=== PATIENT | male | born 1960 | race Hispanic/Latino ===

== ENCOUNTER 2018-07-01 17:44 | Observation (INO) | payer OTHER ==
[~2018-07-01] VITALS: Ht 160 cm; Wt 70.8 kg
[2018-07-01] MEDS ORDERED: ASPIRIN 81 MG CHEW TAB PO ONE (18:15)
[2018-07-01 18:26] LABS: BASOPHILS % 0.3 % (0.0-1.0); EOSINOPHILS # (AUTO) 0.2 (0.0-0.4); EOSINOPHILS % 2.1 % (0.0-6.0); HEMATOCRIT 41.6 % (38.2-49.6); HEMOGLOBIN 13.7 g/dL (14.0-18.0); LYMPHOCYTES # (AUTO) 2.1 (1.0-3.2); LYMPHOCYTES % 22.9 % (18.0-39.1); MEAN CORPUSCULAR HEMOGLOBIN 28.8 pg (28-32); MEAN CORPUSCULAR HGB CONC 32.9 g/dL (31-35); MEAN CORPUSCULAR VOLUME 87.6 fL (81-99); MONOCYTES # (AUTO) 0.5 (0.2-0.8); MONOCYTES % 5.6 % (4.4-11.3); NEUTROPHILS # (AUTO) 6.2 (2.1-6.9); NEUTROPHILS % 68.8 % (38.7-80.0); PLATELET COUNT 220 x10e3/uL (140-360); RED BLOOD COUNT 4.75 x10e6/uL (4.3-5.7)
[2018-07-01 18:29] LABS: BILIRUBIN,URINE NEGATIVE (NEGATIVE); CLARITY,URINE CLEAR (CLEAR); COLOR,URINE YELLOW (YELLOW); KETONES,URINE NEGATIVE (NEGATIVE); LEUKOCYTE ESTERASE ,URINE NEGATIVE (NEGATIVE); NITRITE,URINE NEGATIVE (NEGATIVE); PROTEIN,URINE DIPSTICK NEGATIVE (NEGATIVE); URINE UROBILINOGEN 0.2 mg/dL (0.2 - 1)
[2018-07-01 18:39] LABS: INR 1.07; PROTHROMBIN TIME 13.1 seconds (11.9-14.5)
[2018-07-01 18:40] LABS: PARTIAL THROMBOPLASTIN TIME 27.6 seconds (23.8-35.5)
[2018-07-01 18:44] LABS: BACTERIA,URINE FEW /HPF; EPITHELIAL CELLS,URINE MODERATE /LPF; MUCUS,URINE MODERATE (RARE)
[2018-07-01 18:48] LABS: ALANINE AMINOTRANSFERASE 53 IU/L (0-55); ALBUMIN 3.4 g/dL (3.5-5.0); ALBUMIN/GLOBULIN RATIO 0.9 (0.8-2.0); ALKALINE PHOSPHATASE 175 IU/L (40-150); ANION GAP 14.4 mmol/L (8-16); BLOOD UREA NITROGEN 17 mg/dL (7-26); BUN/CREATININE RATIO 18 (6-25); CALCIUM 9.4 mg/dL (8.4-10.2); CARBON DIOXIDE 24 mmol/L (22-29); CHLORIDE 104 mmol/L (98-107); CREATINE KINASE 145 IU/L (30-200); CREATININE, SERUM 0.95 mg/dL (0.72-1.25); EST GLOMERULAR FILTRATION RATE > 60 ML/MIN (60-); GLUCOSE 99 mg/dL (74-118); POTASSIUM 3.4 mmol/L (3.5-5.1); SODIUM 139 mmol/L (136-145)
--- NOTE | 2018-07-01 19:15 | Diagnostic Imaging Report ---
EXAMINATION: CHEST SINGLE (PORTABLE) INDICATION: \S\CHEST PAIN \S\[id number] \S\1835 \S\Y COMPARISON: None FINDINGS: AP view TUBES and LINES: None. LUNGS: Lungs are well inflated. Lungs are clear. There is no evidence of pneumonia or pulmonary edema. PLEURA: No pleural effusion or pneumothorax. HEART AND MEDIASTINUM: The cardiomediastinal silhouette is unremarkable.. BONES AND SOFT TISSUES: No acute osseous lesion. Soft tissues are unremarkable. UPPER ABDOMEN: No free air under the diaphragm. IMPRESSION: No acute thoracic abnormality. Signed by: Dr. Kasey Gomez M.D. on 07/01/2018 7:12 PM
[2018-07-01] MEDS ORDERED: PANTOPRAZOLE 40 MG 10ML VIAL IV STA (20:09)
[2018-07-01 20:26] LABS: MAGNESIUM 1.9 MG/DL (1.3-2.1)
[2018-07-01] MEDS ORDERED: ONDANSETRON HCL INJ 2 MG/ML VIAL IV PRN (20:45)
[2018-07-01] MEDS ORDERED: MORPHINE SULFATE 2 MG/ML SYR IV PRN (20:45)
[2018-07-01] MEDS: FAMOTIDINE 20 MG/2 ML VIAL IV SCH (21:16)
[2018-07-01 23:00] VITALS: BP 139/89
[2018-07-01] MEDS ORDERED: OMEPRAZOLE40 MG PO (23:46)
[2018-07-02 00:04] VITALS: BP 139/89
[2018-07-02 03:28] LABS: CREATINE KINASE MB 1.2 ng/mL (0-5.0)
[2018-07-02 05:05] VITALS: BP 130/87
[2018-07-02 05:16] LABS: BASOPHILS % 0.2 % (0.0-1.0); EOSINOPHILS # (AUTO) 0.2 (0.0-0.4); EOSINOPHILS % 2.4 % (0.0-6.0); HEMATOCRIT 42.1 % (38.2-49.6); HEMOGLOBIN 13.9 g/dL (14.0-18.0); LYMPHOCYTES # (AUTO) 2.2 (1.0-3.2); LYMPHOCYTES % 23.1 % (18.0-39.1); MEAN CORPUSCULAR HEMOGLOBIN 28.9 pg (28-32); MEAN CORPUSCULAR VOLUME 87.5 fL (81-99); MONOCYTES # (AUTO) 0.6 (0.2-0.8); MONOCYTES % 6.3 % (4.4-11.3); NEUTROPHILS # (AUTO) 6.5 (2.1-6.9); NEUTROPHILS % 67.7 % (38.7-80.0); PLATELET COUNT 206 x10e3/uL (140-360); RED BLOOD COUNT 4.81 x10e6/uL (4.3-5.7)
[2018-07-02 05:49] LABS: ALANINE AMINOTRANSFERASE 50 IU/L (0-55); ALBUMIN 3.4 g/dL (3.5-5.0); ALBUMIN/GLOBULIN RATIO 0.9 (0.8-2.0); ALKALINE PHOSPHATASE 170 IU/L (40-150); ANION GAP 13.6 mmol/L (8-16); BLOOD UREA NITROGEN 14 mg/dL (7-26); BUN/CREATININE RATIO 17 (6-25); CALCIUM 9.4 mg/dL (8.4-10.2); CARBON DIOXIDE 26 mmol/L (22-29); CHLORIDE 103 mmol/L (98-107); CHOL/HDL RATIO 5.6 (3.9-4.7); CHOLESTEROL 175 MD/DL (0-199); CREATININE, SERUM 0.83 mg/dL (0.72-1.25); EST GLOMERULAR FILTRATION RATE > 60 ML/MIN (60-); GLUCOSE 93 mg/dL (74-118); HDL CHOLESTEROL 31 MG/DL (40-60); LDL CHOLESTEROL 118 MG/DL (60-130); POTASSIUM 3.6 mmol/L (3.5-5.1); SODIUM 139 mmol/L (136-145); TRIGLYCERIDES 131 MG/DL (0-149)
[2018-07-02 06:09] LABS: CREATINE KINASE MB 1.2 ng/mL (0-5.0)
[2018-07-02 07:26] VITALS: BP 134/87
[2018-07-02] MEDS: FAMOTIDINE 20 MG/2 ML VIAL IV SCH (08:01)
[2018-07-02] MEDS ORDERED: ASPIRIN 81 MG ENTERIC COATED PO SCH (09:00)
--- NOTE | 2018-07-02 09:15 | History and Physical ---
PRIMARY CARE PHYSICIAN: None. CHIEF COMPLAINT: Chest pain and back pain. HISTORY OF PRESENT ILLNESS: A 58-year-old man with a history of cigarette use and gastritis as well as hiatal hernia, now developing left-sided chest discomfort described as sharp which has now resolved, and also left-sided back pain which he states is his main complaint. He states that he is unable to sleep due to the left-sided back pain, mid back pain. No trauma, no injury, and he wants it evaluated. Denies any shortness of breath, fever, chills, sweats, nausea, vomiting. PAST MEDICAL HISTORY: Remote history of cigarette use, hiatal hernia, gastritis. PAST SURGICAL HISTORY: Cholecystectomy. ALLERGIES: PER THE ELECTRONIC MEDICAL RECORDS. FAMILY HISTORY/SOCIAL HISTORY: Patient is . He has 3 children. No alcohol or illicits. He quit cigarettes remotely. MEDICATIONS: Per the electronic medical records. Medications reviewed. REVIEW OF SYSTEMS: Denies any dizziness, fever, chills, sweats, nausea, vomiting, diarrhea, headache, blurred vision, leg pain or confusion. VITAL SIGNS: Have been reviewed. PHYSICAL EXAMINATION GENERAL APPEARANCE: A tired-appearing man resting in bed. HEENT: Anicteric. Pupils responsive to light. No oral lesions. CARDIOVASCULAR: Normal S1/S2. LUNGS: Moderate breath sounds. ABDOMEN: Soft, nontender, nondistended. EXTREMITIES: No edema or calf tenderness. MUSCULOSKELETAL: Left-sided mid back discomfort on palpation. No rash, no skin breakdown, no lesions at that site. SKIN: Dry. PSYCHIATRIC: Normal affect. NEUROLOGICALLY: Alert and oriented x3. Moving all extremities. LABS: Reviewed. ASSESSMENT: A 58-year-old man. 1. Chest pain. 2. Sinus bradycardia. 3. Overweight state. 4. Left-sided back pain in the thoracic region. 5. Hypokalemia. 6. Normocytic anemia. 7. Gastritis. PLAN 1. Cardiac enzymes are negative. 2. Obtain CT scan of the thoracic spine to further evaluate ongoing left-sided back pain which is affecting his quality of life. 3. His bradycardia is improving. 4. Will use aspirin and statin. His LDL was 118 and he also has chest discomfort which seems to have resolved. His cardiac enzymes are negative. 5. Will use Lovenox and Pepcid for prophylaxis. 6. Disposition. Home once CT scan of the back is negative. Job#: [id number] EV
--- NOTE | 2018-07-02 09:25 | History and Physical ---
ADDENDUM I will follow up the echocardiogram as well. Job#: [id number]
--- NOTE | 2018-07-02 12:21 | Consultation ---
DATE OF CONSULTATION: July 02, 2018 CARDIOLOGY CONSULTATION REASON FOR CONSULTATION: Chest pain. HISTORY OF PRESENT ILLNESS: This is a 58-year-old male with a history of gastritis, hiatal hernia. The patient presents to [facility] ER with complaints of a several-month history of chest pain. However, in the past couple of weeks reports chest pain has worsened. Cardiology was consulted to evaluate patient. Patient seen in room, in no acute distress with at bedside, reports has been having chest discomfort for the past several months. Was apparently diagnosed with gastritis in [place], was given omeprazole and diet restrictions. However, reports symptoms have worsened in recent weeks; but, however, was having some substernal chest pain. He reports the substernal chest pain as occasional pressure, sharp and burning sensation worse with foods. Denies any exertional chest pain. Currently patient is in no acute distress. PAST MEDICAL HISTORY 1. Gastritis. 2. Hiatal hernia. SURGICAL HISTORY: Cholecystectomy. SOCIAL HISTORY: . Three children. He is a teacher. He denies any alcohol use. Ex-smoker, when he was in his late teens. FAMILY HISTORY: His mother is alive at age 96, history of hypertension and hyperlipidemia. Father at age of 65 from MVA. ALLERGIES: NO KNOWN ALLERGIES. REVIEW OF SYSTEMS GENERAL: Denies any weight changes, fatigue, weakness, fevers, chills, night sweats. SKIN-SAMANIEGO: No rashes or sores reported. HEENT: No trauma, no headaches. No nausea or vomiting. No vision changes. No blurred vision, double vision, tinnitus, vertigo, earaches, stuffy nose, sneezing, epistaxis, sore throat, hoarseness, swollen neck. CARDIAC: Chest pain as above. Denies any palpitations. Positive for dyspnea on exertion. No orthopnea, no PND, no lower extremity edema. RESPIRATORY: Denies any shortness of breath, any wheezing, coughing, hemoptysis. GI: Good appetite. No nausea, vomiting. Denies any diarrhea, constipation, hematemesis, any hematochezia. Occasional burning sensation, epigastric region. URINARY: Denies any frequency, urgency, hematuria. VASCULAR: Denies any lower extremity edema, claudication. MUSCULOSKELETAL: Denies any muscle weakness. Does complain of lumbar back pain. Denies any joint pains. NEUROLOGIC: Denies any numbness, tingling, tremors, weakness, paralysis, blackouts, seizures. HEMATOLOGY: Denies any anemia, any bruising. PHYSICAL EXAMINATION VITAL SIGNS: Height 63 inches, weight 156 pounds. Current temperature 96.4, pulse 64, respiratory rate 20, blood pressure 134/87, pulse ox 98% on room air. GENERAL: He is a reliable informant, appears stated age, no acute distress. SKIN-SAMANIEGO: No rashes, bruises noted. HEENT: Normocephalic. Pupils equal and reactive. Extraocular motor intact. Trachea midline. Oral mucosa pink. No JVD. No carotid bruits were noted. HEART: Regular rate and rhythm. PMI in 4th intercostal space. LUNGS: Bilateral breath sounds clear to auscultation. Good airway entry. ABDOMEN: Soft, nontender, nondistended. No organomegaly noted. MUSCULOSKELETAL: Good muscle strength throughout. Does have some lower back tenderness with palpation. VASCULAR: +2 bilateral radial pulses, +2 DP/PT pulses. NEUROLOGIC: Cranial nerves 2-12 seem intact. LABS: White count 9.5, hemoglobin 13, hematocrit 42, platelets 206. CHEMISTRY: Sodium 139, potassium 3.6, chloride 103, BUN 14, creatinine 0.8. BNP 10. Troponin 0.004, next 0.004, next 0.001. ELECTROCARDIOGRAM: Show sinus bradycardia with a heart rate of 54. CHEST X-RAY: Showing no acute abnormalities. ASSESSMENT 1. Chest pain. 2. Gastroesophageal reflux disease/gastritis. 3. Back pain. PLAN-SAMANIEGO: Patient presents with chest discomfort. Thus far negative enzymes and EKG without any changes to suggest an acute event. Will go ahead and set patient up for a stress test this morning. Also, patient needs PPI therapy for his gastritis-type symptoms. Thank you very much for this consult. We will continue to follow patient and adjust cardiac therapy as clinical course dictates. Dictated by: Jose Francisco Nye NP Job#: [id number] EV
--- NOTE | 2018-07-02 13:00 | Diagnostic Imaging Report ---
Examination: CT Thoracic Spine without Contrast History: 58-year-old male with mid back pain for the past few weeks. Comparison studies: None Technique: Axial images were reformatted obtained through the thoracic spine. Coronal and sagittal reconstructions obtained from the axial data. Dose modulation, iterative reconstruction, and/or weight based adjustment of the mA/kV was utilized to reduce the radiation dose to as low as reasonably achievable. Intravenous contrast: 100 mL Isovue-370. Findings: Alignment: Normal kyphosis. No scoliosis. Soft tissues: No abnormalities. Paraspinal muscles: No abnormalities. Enhancement: No abnormal enhancement. Vertebrae: No fractures, infection or neoplasm. Mild anterior osteophytosis from T3 to T9. Degenerative changes: No disc bulge or herniation or canal stenosis. IMPRESSION: No acute thoracic spine abnormality, specifically, no acute fracture. Signed by: Dr. Susie Ramon M.D. on 07/02/2018 12:56 PM
--- NOTE | 2018-07-02 14:11 | Cardiology Report ---
DATE OF STUDY: July 02, 2018 EXERCISE TREADMILL STRESS TEST INDICATIONS FOR STUDY: Chest pain. TECHNICAL DETAILS: After risks, benefits, pros, and cons of today's exercise treadmill stress test was explained to the patient, the patient agreed to proceed. The patient was brought down to the stress lab where 12-lead EKG monitoring and blood pressure monitoring were obtained. He exercised on a Tucker protocol for a total duration of 10 minutes and 32 seconds terminating in stage 4 of the protocol. Resting heart rate went from a baseline of 79 beats per minute maximum to 140 beats per minute above our target heart rate of 138 beats per minute. Blood pressure went from a baseline of 126/69 to a maximum of 168/94, which is an appropriate blood pressure response. Underlying rhythm is normal sinus rhythm without any ischemia. At peak exercise, there was no chest pain symptoms and there was no ischemic EKG changes. Overall, the patient achieved excellent workload achieving up to 12.8 mets of activity. CONCLUSION 1. Negative exercise treadmill stress test, low risk with excellent exercise tolerance. 2. Findings of the stress test was explained to the patient, including limitations. 3. The patient has ruled out for myocardial infarction and is okay to go home later today. Job#: [id number] ID
[2018-07-02] MEDS ORDERED: ACETAMINOPHEN/CODEINE 300MG - 30MG TAB PO PRN (14:45)
[2018-07-02] MEDS ORDERED: ENOXAPARIN SOD INJ 40 MG/0.4 ML SYR SC SCH (17:00)
[2018-07-02] MEDS ORDERED: IOPAMIDOL 370 MG/ML 200 ML INFUS..BTL INJ ONE (18:29)
[2018-07-02] MEDS ORDERED: SODIUM CHLORIDE 0.9% 50ML 50 ML ONE (18:29)
[2018-07-02] MEDS ORDERED: PRAVASTATIN 20 MG TAB PO SCH (21:00)
== END 2018-07-02 15:53 | disposition home or self-care (01) ==
LOC: ER 17:44 → ERHOLD 20:45 → IMCU 23:10
PROVIDERS: ADMIT Internal Medicine; ATTEND Internal Medicine
DX: R07.2 Precordial pain (principal); R00.1 Bradycardia, unspecified; K29.70 Gastritis, unspecified, without bleeding; K44.9 Diaphragmatic hernia without obstruction or gangrene; M54.6 Pain in thoracic spine; E87.6 Hypokalemia; D64.9 Anemia, unspecified; K21.9 Gastro-esophageal reflux disease without esophagitis; E66.3 Overweight; Z87.891 Personal history of nicotine dependence; Z68.27 Body mass index [BMI] 27.0-27.9, adult; Z90.49 Acquired absence of other specified parts of digestive tract
CPT/HCPCS: 36415; 71045; 72129; 80053; 80061; 81001; 82150; 82550; 82553; 83690; 83735; 83880; 84484; 85025; 85610; 85730; 93005; 93017; 93306; 99284; G0378; J2270; Q9967